=== PATIENT | female | born 1970 | race Caucasian/White ===

== ENCOUNTER 2018-12-10 10:01 | Emergency (ER) | payer MEDICAID ==
[~2018-12-10] VITALS: Wt 87.4 kg
[~2018-12-10 10:01] MED LIST: FLUO20CA22; GLIM2TAB47; INSULIN; MTF1000T
[2018-12-10 10:03] VITALS: BP 145/74; PULSE 84; RESP 18
[2018-12-10] MEDS ORDERED: KETOROLAC 30 MG INJ IM STA (10:17)
--- NOTE | 2018-12-10 10:27 | ERD ---
ER Documentation Chief Complaint Chief Complaint back pain rad right leg HPI This patient is a 48-year-old female with past medical history of type 2 diabetes presenting to the emergency department complaining of left-sided low back pain with radiation down her left leg which began approximately 3 days ago. Pain is intermittent and worse with walking. She tried ibuprofen at home with some relief. Pain is rated 8/10 in severity. She denies any heavy lifting or twisting or bending. She has history of similar symptoms in the past. She states this is the same symptoms she had when she had a kidney infection previously. She denies any fevers, chills, loss of bowel or bladder function, or other symptoms at this time. ROS All systems reviewed and are negative except as per history of present illness. Medications Home Meds Active Scripts Cyclobenzaprine Hcl* (Cyclobenzaprine Hcl*) 10 Mg Tablet, 10 MG PO TID, #15 TAB Prov:MILA RODRIGUEZ PA-C 12/10/18 Naproxen* (Naprosyn*) 500 Mg Tablet, 500 MG PO BID PRN for PAIN AND/OR INFLAMMATION, #30 TAB Prov:MILA RODRIGUEZ PA-C 12/10/18 Prednisone* (Prednisone*) 20 Mg Tab, 40 MG PO DAILY for 4 Days, TAB Prov:MILA RODRIGUEZ PA-C 12/10/18 Reported Medications [Insulin] No Conflict Check 12/31/12 Fluoxetine Hcl* (Fluoxetine Hcl*) 20 Mg Capsule 10/13/09 Metformin* (Glucophage*) 1,000 Mg Tablet 10/13/09 Glimepiride* (Amaryl*) 2 Mg Tablet 10/13/09 Allergies Allergies: Coded Allergies: No Known Allergy (Unverified , 12/10/18) PMhx/Soc History of Surgery: Yes (C SECTION 2X) Anesthesia Reaction: No Hx Neurological Disorder: No Hx Respiratory Disorders: No Hx Cardiac Disorders: No Hx Psychiatric Problems: No Hx Miscellaneous Medical Probl: Yes (DM) Hx Alcohol Use: No Hx Substance Use: No Hx Tobacco Use: No Smoking Status: Never smoker FmHx Family History: No diabetes Physical Exam Vitals Vital Signs Date Temp Pulse Resp B/P (MAP) Pulse Ox O2 O2 Flow FiO2 Time Delivery Rate 12/10/18 97.6 84 18 145/74 99 10:03 (97) Physical Exam Const: No acute distress Head: Atraumatic Eyes: Normal Conjunctiva ENT: Normal External Ears, Nose and Mouth. Neck: Full range of motion. No meningismus. Resp: Clear to auscultation bilaterally Cardio: Regular rate and rhythm, no murmurs Skin: No petechiae or rashes Back: No midline or flank tenderness. Subjective tenderness palpation of the left low back. Positive straight leg raise on the left. No CVA tenderness. Ext: No cyanosis, or edema Neur: Awake and alert Psych: Normal Mood and Affect Results 24 hrs Laboratory Tests Test 12/10/18 10:32 12/10/18 10:33 Bedside Urine pH (LAB) 5.5 Bedside Urine Protein (LAB) 1+ Bedside Urine Glucose (UA) 0.50% Bedside Urine Ketones (LAB) Negative Bedside Urine Blood 3+ Bedside Urine Nitrite (LAB) Negative Bedside Urine Leukocyte Esterase (L Negative POC Beta HCG, Qualitative NEGATIVE Current Medications Medications Dose Sig/Lui Start Time Status Last (Trade) Ordered Route PRN Stop Time Admin Dose Reason Admin Ketorolac 30 mg ONCE STAT 12/10/18 DC 12/10/18 Tromethamine IM 10:17 12/10/18 10:40 (Toradol) 10:18 Procedures/MDM 48-year-old female presenting to the emergency department with signs and s ymptoms most consistent with left-sided low back pain with sciatica. Urine dip was negative for signs of urinary tract infection. Urine was negative. Patient was treated in the department with Toradol with good response. Patient's musculoskeletal symptoms have stabilized while they have been evaluated in the department and are appropriate for outpatient work up. No evidence of cauda equina, cord compression, infiltrative, obstructive, or infectious etiology. Patient agreed with the diagnosis, plan to me for follow- up, return precautions. Patient's blood pressure was elevated (>120/80) but appears stable without evid ence of hypertension emergency or urgency. The patient is to follow-up and pursue outpatient monitoring and therapy with their primary care physician within 1 week and return immediately if they have any new, worsening, or concerning symptoms. Departure Diagnosis: Primary Impression: Low back pain with left-sided sciatica Chronicity: acute Back pain laterality: left Qualified Codes: M54.42 - Lumbago with sciatica, left side Condition: Fair Additional Instructions: Дмитрийas portillo por [facility] para bragg servicio. Esperamos que en bragg visita a la gerry de emergencia bragg problema medico haya sido solucionado y que se sienta mucho mejor. Para estar seguros que bragg mejoria sigue en proceso, le pedimos el favor de hacer lio sang de seguimiento medico con bragg doctor primario en los proximos 2-4 corral. Lleve con usted estos documentos y las medicinas recetadas. Si sin sintomas empeoran, NO SE ESPERE, por favor regrese a gerry de emergencia INMEDIATAMENTE. En marbella que usted no tenga un mdico de atencin primaria: Llame al mdico o clnica comunitaria de referencia que aparece abajo annie las horas de consultorio para hacer lio sang para que le vean. CLINICAS: [facility] [phone] [facility] [phone] [facility] [phone] [facility] [phone] [facility] [phone] [facility] [phone] MILA OLIVERA PA-C Dec 10, 2018 10:27
[2018-12-10] MEDS ORDERED: CYCL10TA7 PO (10:50)
[2018-12-10] MEDS ORDERED: NAPR-985 PO (10:50)
[2018-12-10] MEDS ORDERED: PRED20TA PO (10:50)
== END 2018-12-10 11:07 | disposition home or self-care (01) ==
LOC: FTE 10:01
DX: M54.42 Lumbago with sciatica, left side (principal); E11.9 Type 2 diabetes mellitus without complications; Z79.4 Long term (current) use of insulin
CPT/HCPCS: 81003; 81025; 96372; J1885; Z7502